=== PATIENT | male | born 1980 | race Two or more races ===

== ENCOUNTER 2017-12-23 01:08 | Emergency (ER) | payer OTHER ==
[~2017-12-23] VITALS: Ht 177.8 cm; Wt 81.6 kg
[2017-12-23 01:12] VITALS: BP 155/76
[2017-12-23] MEDS ORDERED: Fluorescein Strips RIGHT EYE ONE (01:45)
--- NOTE | 2017-12-23 01:57 | Emergency Room Report ---
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 Onset earlier today while at work. He went to [place] and was tolerating looks fine after my exam. No foreign body. Was treated with antibiotic eyedrops. He was better for one hour but he still felt like there is something there. Worse with blinking. No fever or chills. Still irritated. Allergies: Coded Allergies: No Known Allergies (Unverified , 12/23/17) Patient History Past Medical History: see triage record, old chart reviewed Past Surgical History: none Pertinent Family History: none Social History: Denies: smoking Immunizations: other Reviewed Nursing Documentation: PMH: Agreed, PSxH: Agreed Nursing Documentation-PMH Past Medical History: No Stated History Review of Systems Eye: Reports: eye pain, tearing, Denies: blurred vision ENT: Denies: ear pain, nose congestion, throat swelling Respiratory: Denies: cough, shortness of breath Cardiovascular: Denies: chest pain, palpitations Gastrointestinal: Denies: abdominal pain, diarrhea, nausea, vomiting Musculoskeletal: Denies: back pain, joint pain Skin: Denies: rash Neurological: Denies: headache, numbness Endocrine: Denies: increased thirst, increased urine Hematologic/Lymphatic: Denies: easy bruising All Other Systems: negative except mentioned in HPI Physical Exam Vital Signs Date Time Temp Pulse Resp B/P (MAP) Pulse Ox O2 Delivery O2 Flow Rate FiO2 12/23/17 01:09 97.7 62 16 155/76 97 Room Air vitals unremarkable Sp02 EP Interpretation: reviewed, normal General Appearance: well appearing, no apparent distress, alert Head: normocephalic, atraumatic Eyes: left eye Scleral Injection, left eye other - Injected conjunctiva. No foreign body with eversion of the lid. No fluorescein uptake, bilateral eye PERRL, bilateral eye EOMI ENT: hearing grossly normal, normal pharynx Neck: full range of motion, supple, no meningismus Respiratory: chest non-tender, lungs clear, normal breath sounds Cardiovascular #1: regular rate, rhythm, no murmur Gastrointestinal: normal bowel sounds, non tender, no mass, no organomegaly, no bruit, non-distended Musculoskeletal: back normal, gait/station normal, normal range of motion Psychiatric: mood/affect normal Skin: warm/dry Medical Decision Making Diagnostic Impression: Primary Impression: Conjunctivitis Qualified Codes: H10.31 - Unspecified acute conjunctivitis, right eye ER Course Patient with eye irritation. No evidence of foreign body. No globe rupture. We'll discharge home. Last Vital Signs Date Time Temp Pulse Resp B/P (MAP) Pulse Ox O2 Delivery O2 Flow Rate FiO2 12/23/17 01:12 97.7 62 16 155/76 97 Room Air Status: improved Disposition: HOME, SELF-CARE Condition: Stable Scripts No Active Prescriptions or Reported Meds Patient Instructions: Viral Conjunctivitis Additional Instructions: Continue using eyedrop. Followup with your Dr. in 2-3 days if not better. You may need to see an it Dr. Return if worse. Treat the other eye if symptoms started. KRISH HATCH M.D. Dec 23, 2017 01:57
[2017-12-23 02:02] VITALS: BP 155/76
== END 2017-12-23 02:02 | disposition home or self-care (01) ==
LOC: EMR 01:19
DX: H10.9 Unspecified conjunctivitis (principal)
CPT/HCPCS: 99283

== ENCOUNTER 2018-04-12 21:46 | Emergency (ER) | payer OTHER ==
[~2018-04-12] VITALS: Ht 177.8 cm; Wt 81.6 kg
[2018-04-12] MEDS ORDERED: Ketorolac 60mg Inj IM ONE (22:15)
[2018-04-12] MEDS ORDERED: PREDNISONE20 MG ORAL (23:07)
[2018-04-12] MEDS ORDERED: IBUPROFEN600 MG ORAL (23:07)
[2018-04-12] MEDS ORDERED: HYDROCODON-ACE1 EA15 ORAL (23:07)
--- NOTE | 2018-04-12 23:08 | Emergency Room Report ---
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 Onset was about a week ago. No particular onset etiology. Also time pain is at work. Pain is to the lower back. Sometime radiating down to the left thigh to the knee area. Pain is 8 out of 10. Worse with movement. Better with rest. No fever chills but no nausea no vomiting. No trauma. No incontinence of bowel or urine. Allergies: Coded Allergies: No Known Allergies (Unverified , 04/12/18) Patient History Past Medical History: none, see triage record, old chart reviewed Past Surgical History: none Pertinent Family History: none Social History: Denies: smoking Immunizations: other Reviewed Nursing Documentation: PMH: Agreed; PSxH: Agreed Nursing Documentation-PMH Past Medical History: No Stated History Review of Systems Eye: Denies: eye pain, blurred vision ENT: Denies: ear pain, nose congestion, throat swelling Respiratory: Denies: cough, shortness of breath Cardiovascular: Denies: chest pain, palpitations Gastrointestinal: Denies: abdominal pain, diarrhea, nausea, vomiting Musculoskeletal: Reports: back pain; Denies: joint pain Skin: Denies: rash Neurological: Denies: headache, numbness Endocrine: Denies: increased thirst, increased urine Hematologic/Lymphatic: Denies: easy bruising All Other Systems: negative except mentioned in HPI Physical Exam Vital Signs Date Time Temp Pulse Resp B/P (MAP) Pulse Ox O2 Delivery O2 Flow Rate FiO2 04/12/18 22:04 98.0 57 16 147/81 99 Room Air 98.1 vitals normal except for elevated blood pressure Sp02 EP Interpretation: reviewed, normal General Appearance: well appearing, no apparent distress, alert Head: normocephalic, atraumatic Eyes: bilateral eye PERRL, bilateral eye EOMI ENT: hearing grossly normal, normal pharynx Neck: full range of motion, supple, no meningismus Respiratory: chest non-tender, lungs clear, normal breath sounds Cardiovascular #1: regular rate, rhythm, no murmur Gastrointestinal: normal bowel sounds, non tender, no mass, no organomegaly, no bruit, non-distended Musculoskeletal: back normal - Tenderness to the lower back bilaterally. No midline step-off. No anesthesia, gait/station normal, normal range of motion Neurologic: alert, oriented x3, responsive Psychiatric: mood/affect normal Skin: warm/dry Medical Decision Making Diagnostic Impression: Primary Impression: Degenerative disc disease, lumbar Additional Impression: Sciatica of left side ER Course Patient with lower back pain consistent with sciatica and degenerative disc disease. He may have stenosis which is not seen on CT scan. MRI will be a better test. I see no evidence of cauda equina syndrome, spinal epidural abscess or neoplastic process. We'll discharge home. Last Vital Signs Date Time Temp Pulse Resp B/P (MAP) Pulse Ox O2 Delivery O2 Flow Rate FiO2 04/12/18 22:31 98.0 04/12/18 22:04 57 16 147/81 99 Room Air Status: improved Disposition: HOME, SELF-CARE Condition: Stable Scripts Prednisone* (PREDNISONE*) 20 Mg Tablet 60 MG ORAL DAILY, #15 TAB Prov: KRISH HATCH M.D. 04/12/18 Ibuprofen* (MOTRIN*) 600 Mg Tablet 600 MG ORAL THREE TIMES A DAY, #30 TAB 0 Refills Prov: KRISH HATCH M.D. 04/12/18 Hydrocodone/Acetaminophen 5-325* (HYDROCODONE/ACETAMINOPHEN 5-325*) 1 Each Tablet 1 TAB ORAL Q6H PRN for For Pain, #20 TAB 0 Refills Prov: KRISH HATCH M.D. 04/12/18 Referrals: [facility] (PCP) Patient Instructions: Back Pain, Adult Additional Instructions: Follow-up with Dr. luz maria in 2-3 days. Return if symptom worsen. KRISH HATCH M.D. April 12, 2018 23:08
[2018-04-12 23:20] VITALS: BP_SYST 132; BP_SYST 147; BP_DIAS 81; BP_DIAS 85
--- NOTE | 2018-04-13 09:21 | Diagnostic Imaging Report ---
Indications: Pain, work injury, trauma Technique: Spiral acquisitions obtained through the lumbar spine. Multiplanar reconstructions were generated. No IV contrast utilized. Total dose length product 431.52 mGycm. CTDIvol(s) 14.03 mGy. Dose reduction achieved using automated exposure control Comparison: none Findings: No acute fractures. No dislocations. There is minimal lumbar scoliotic deformity which may be an artifact of positioning. There is minimal degenerative disc narrowing at L4-5 and L5-S1 with slight endplate irregularity At L4-5, there is mild circumferential annular bulge. This does not appear to significant compromise the spinal canal or neural foramina. At L5-S1, there is mild circumferential annular bulge. This does not appear to compromise the spinal canal or neural foramina. Postsurgical changes in the right lower quadrant likely indicate prior appendectomy. Included extraspinal soft tissues are otherwise unremarkable. Impression: No acute bony trauma Minimal degenerative changes, as described This agrees with the preliminary interpretation provided overnight by [facility] teleradiology service. The CT scanner at [facility] is accredited by the [employer] and the scans are performed using protocols designed to limit radiation exposure to as low as reasonably achievable to attain images of sufficient resolution adequate for diagnostic evaluation.
== END 2018-04-12 23:21 | disposition home or self-care (01) ==
LOC: EMR 22:21
DX: M51.16 Intervertebral disc disorders with radiculopathy, lumbar region (principal)
CPT/HCPCS: 72131; 96372; 99284